=== PATIENT | female | born 1980 | race Caucasian/White ===

== ENCOUNTER 2016-11-04 12:58 | Emergency (ER) | payer OTHER ==
[~2016-11-04] VITALS: Ht 170.2 cm; Wt 68.0 kg
--- NOTE | ~2016-11-04 | EKG ---
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
[2016-11-04 13:43] LABS: ABSOLUTE NEUTROPHILS 5.5 thou/uL (1.4-8.2); BASOPHILS 0.8 % (0.0-2.0); EOSINOPHILS 1.4 % (0.0-3.0); HEMATOCRIT 42.9 % (37.0-47.0); HEMOGLOBIN 14.3 gm/dL (12.0-15.0); LYMPHOCYTES 23.4 % (24.0-44.0); MCH 31.4 pg (26.0-34.0); MCHC 33.3 % (28.0-37.0); MCV 94.4 fL (80.0-100.0); MONOCYTES 7.4 % (1.0-8.0); PLATELET COUNT 303 thou/uL (150-400); RBC 4.54 mil/uL (4.20-5.00); RDW 13.4 % (10.5-14.5); WBC 8.3 thou/uL (4.0-11.0)
[2016-11-04 13:45] LABS: MANUAL DIFF NO
[2016-11-04 13:49] LABS: ANION GAP 6 mmol/L (7-16); BUN 16 mg/dL (7-18); CALCIUM 8.8 mg/dL (8.5-10.1); CHLORIDE 101 mmol/L (98-107); CO2 30 mmol/L (21-32); GLUCOSE 92 mg/dL (70-99); SODIUM 137 mmol/L (136-145)
[2016-11-04 13:58] LABS: TROPONIN-I < 0.04 ng/mL (<0.04-0.07)
[2016-11-04 15:57] VITALS: BP 107/75
== END 2016-11-04 15:58 | disposition home or self-care (01) ==
LOC: ER 12:58
PROVIDERS: Emergency Medicine
DX: R07.89 Other chest pain (principal); K21.9 Gastro-esophageal reflux disease without esophagitis